=== PATIENT | male | born 1930 | race Caucasian/White ===

== ENCOUNTER 2017-09-29 16:05 | Emergency (ER) | payer OTHER ==
[2017-09-29 16:29] VITALS: BP 156/95; PULSE 73; TEMP 98.1; BMI 27.9
[2017-09-29] MEDS ORDERED: DIPHTH,PERTUSS(ACELL),TET 0.5 ML DISP.SYRIN IM ONE (17:02)
--- NOTE | 2017-09-29 17:07 | PDOC ---
History of Present Illness - General Chief Complaint: Injury Stated Complaint: LACERATION Time Seen by Provider: 09/29/17 16:56 History Source: Patient Exam Limitations: No Limitations - History of Present Illness Initial Comments: 09/29/17 17:03 87 year old male with history of DM, and prostate presents with laceration to left 3rd digit that was accidentally sliced by a knife when he was reaching for a spoon in the kitchen. Denies numbness or tingling to tips of finger. Timing/Duration: reports: just prior to arrival Severity: Yes: mild Location: reports: extremities Respiratory Risk Factors: reports: no cause identified Associated Symptoms: reports: denies symptoms Past History - Travel Traveled outside of the country in the last 30 days: No - Past Medical History Allergies/Adverse Reactions: Allergies Allergy/AdvReac Type Severity Reaction Status Date / Time No Known Allergies Allergy Verified 09/29/17 16:27 Home Medications: Ambulatory Orders Cephalexin [Keflex] 500 mg PO BID #14 capsule 09/29/17 CVA: No COPD: No DVT: No Diabetes: Yes Disorders: Yes (BPH) - Immunization History Immunization Up to Date: Yes - Suicide/Smoking/Psychosocial Hx Smoking History: Never smoked Information on smoking cessation initiated: No Hx Alcohol Use: No Drug/Substance Use Hx: No Substance Use Type: None Review of Systems - Review of Systems Able to Perform ROS?: Yes Is the patient limited Maltese proficient: No Constitutional: No: Chills, Fever, Malaise HEENTM: No: Nose Pain, Nose Congestion, Throat Swelling Respiratory: No: Cough, Shortness of Breath, Wheezing, Productive cough Cardiac (ROS): No: Chest Pain, Syncope ABD/GI: No: Poor Appetite, Vomiting, Indigestion Integumentary: Yes: Other (laceration to left finger ) Neurological: No: Paresthesia, Tingling *Physical Exam - Vital Signs Last Vital Signs Temp Pulse Resp BP Pulse Ox 98.1 F 73 16 156/95 98 09/29/17 16:27 09/29/17 16:27 09/29/17 16:27 09/29/17 16:27 09/29/17 16:27 - Physical Exam General Appearance: Yes: Nourished. No: Appropriately Dressed HEENT: positive: SRINI Neck: positive: Supple. negative: Lymphadenopathy (R), Lymphadenopathy (L) Respiratory/Chest: negative: Chest Tender, Lungs Clear Procedures - Laceration/Wound Repair Left Dorsal Finger 4th digit Wound Length: to 2.5 cm Wound Explored: clean Wound's Depth, Shape: superficial Irrigated w/ Saline: Yes Betadine Prep: Yes Anesthesia: 2% Lidocaine Amount of Anesthetic (ccs): 10 Wound Debrided: minimal Wound Repaired With: Sutures Suture Size/Type: 5:0 Number of Sutures: 5 Layer Closure: No Sterile Dressing Applied: Yes Splint Applied: No Sling Applied: No Medical Decision Making - Medical Decision Making 09/29/17 17:51 87 year old male with laceration of left 4th digit accidentally by knife while reaching for a spoon A/P laceration of finger *boostrix vaccine *finger repair *Rx cephalexin *DC/Admit/Observation/Transfer Diagnosis at time of Disposition: Laceration of finger Qualifiers: Encounter type: initial encounter Finger: ring finger Damage to nail status: unspecified Foreign body presence: without foreign body Laterality: left Qualified Code(s): S61.215A - Laceration without foreign body of left ring finger without damage to nail, initial encounter - Discharge Dispostion Disposition: HOME Condition at time of disposition: Good Admit: No - Prescriptions Prescriptions: Cephalexin [Keflex] 500 mg PO BID #14 capsule - Referrals Referrals: Sang Rosa MD, [Primary Care Provider] - - Patient Instructions Printed Discharge Instructions: DI for Laceration Repair -- Finger Additional Instructions: -PLEASE KEEP FINGER DRY AND DRESSING IN PLACE FOR 24 HOURS -REMOVE THE DRESSING IN 24 HOURS, MAY WASH GENTLY WITH SOAP AND WATER DAILY -USE A BANDAID TO COVER -APPLY BACITRACIN ONCE DAILY -WHEN AT HOME MAY LEAVE OPEN TO AIR AFTER 3 DAYS -RETURN TO EMERGENCY ROOM 10/12/17 FOR SUTURE REMOVAL - Post Discharge Activity Forms/Work/School Notes: Back to Work
[2017-09-29] MEDS ORDERED: ACETAMINOPHEN 325 MG TABLET (FP) PO ONE (17:57)
[2017-09-29] MEDS ORDERED: ACETAMINOPHEN 325 MG TABLET (FP) ONE (18:03)
== END 2017-09-29 18:14 | disposition home or self-care (01) ==
LOC: JERFT 16:05
PROC: 3E0234Z Introduction of Serum, Toxoid and Vaccine into Muscle, Percutaneous Approach (ICD-10-PCS; principal; 2017-09-29)
PROC: 0HQGXZZ Repair Left Hand Skin, External Approach (ICD-10-PCS; 2017-09-29)
DX: S61.215A Laceration without foreign body of left ring finger without damage to nail, initial encounter (principal); W26.0XXA Contact with knife, initial encounter; Y93.89 Activity, other specified; Y92.030 Kitchen in apartment as the place of occurrence of the external cause; Y99.8 Other external cause status; E11.9 Type 2 diabetes mellitus without complications; Z79.84 Long term (current) use of oral hypoglycemic drugs; N40.0 Benign prostatic hyperplasia without lower urinary tract symptoms
CPT/HCPCS: 12001; 90471; 90715; 99281-25

== ENCOUNTER 2017-10-12 09:26 | Emergency (ER) | payer OTHER ==
[2017-10-12 09:32] VITALS: BP 116/71; PULSE 71; TEMP 98; BMI 27.8
[2017-10-12] MEDS ORDERED: BACITRACIN 15 GM TUBE TOPICAL OINTMENT ONE (10:34)
--- NOTE | 2017-10-12 10:43 | PDOC ---
History of Present Illness - General Chief Complaint: Suture/Staple Removal(Here) Stated Complaint: SUTURE REMOVAL Time Seen by Provider: 10/12/17 10:17 - History of Present Illness Initial Comments: 7-year-old male presents for suture removal of his left fourth finger. Sutures were placed 2 weeks ago. His course since his injury has been uneventful he has no complaints 10/12/17 10:38 Past History - Past Medical History Allergies/Adverse Reactions: Allergies Allergy/AdvReac Type Severity Reaction Status Date / Time No Known Allergies Allergy Verified 10/12/17 09:28 Home Medications: Ambulatory Orders Cephalexin [Keflex] 500 mg PO BID #14 capsule 09/29/17 CVA: No COPD: No DVT: No Diabetes: Yes Disorders: Yes (BPH) - Immunization History Immunization Up to Date: Yes - Suicide/Smoking/Psychosocial Hx Smoking History: Never smoked Have you smoked in the past 12 months: No Information on smoking cessation initiated: No Hx Alcohol Use: No Drug/Substance Use Hx: No Substance Use Type: None Review of Systems - Review of Systems All Other Systems: Reviewed and Negative *Physical Exam - Vital Signs Last Vital Signs Temp Pulse Resp BP Pulse Ox 98.0 F 71 16 116/71 97 10/12/17 09:29 10/12/17 09:29 10/12/17 09:29 10/12/17 09:29 10/12/17 09:29 - Physical Exam Comments: There is about a centimeter wound over the dorsum of the PIPJ of the left fourth finger normal surrounding skin color and temperature are normal range of motion slightly limited there are no gross sensorimotor deficits. 10/12/17 10:41 Medical Decision Making - Medical Decision Making 5 sutures were taken out of the left fourth finger on the dorsum of the PIPJ without complication benzoin and Steri-Strips were applied wound care instructions were given patient was advised to follow up with hand surgery 10/12/17 10:42 *DC/Admit/Observation/Transfer Diagnosis at time of Disposition: Visit for suture removal - Referrals Referrals: Sang Rosa MD, [Primary Care Provider] - Terry Xiao MD [Staff Physician] - - Patient Instructions Printed Discharge Instructions: DI for Suture Removal Additional Instructions: He may leave U wound open to air wash it with soap and water that he normally would. Steri-Strips will fall off in a few days. Follow-up with hand surgery as advised. Return to the emergency room if you have any drainage from your wound or if symptoms worsen or go unresolved prior to follow up - Post Discharge Activity
== END 2017-10-12 11:08 | disposition home or self-care (01) ==
LOC: JERFT 09:26
DX: Z48.02 Encounter for removal of sutures (principal)
CPT/HCPCS: 99281-25